=== PATIENT | female | born 1945 | race Asian ===

== ENCOUNTER → 2016-06-10 | Outpatient (CLI) | payer MEDICARE, OTHER ==
[2016-06-10 10:44] LABS: HEMATOCRIT 27.9 % (36-46); HEMOGLOBIN 8.7 g/dL (12.0-16.0)
[2016-06-10 11:05] LABS: CALCIUM, TOTAL 8.7 mg/dL (8.8-10.5); CHOL/HDL RATIO 3.6 (3.9-5.7); CREATININE 3.46 mg/dL (0.60-1.30); PHOSPHORUS 5.1 mg/dL (2.5-4.9); POTASSIUM 4.8 mmol/L (3.5-5.1)
[2016-06-10 11:21] LABS: HEMOGLOBIN A1C 10.3 % (4.5-6.2)
== END | disposition home or self-care (01) ==
LOC: LABPV 08:47
PROVIDERS: ATTEND Internal Medicine Nephrology
DX: E11.29 Type 2 diabetes mellitus with other diabetic kidney complication (principal); K52.29 Other allergic and dietetic gastroenteritis and colitis; E78.5 Hyperlipidemia, unspecified; I10 Essential (primary) hypertension
CPT/HCPCS: 82271; 82607; 82728; 82746; 83036; 83540; 83550; 84100; 84466; 85014; 85018